=== PATIENT | female | born 1940 | race Caucasian/White ===

== ENCOUNTER → 2021-07-30 | Outpatient (CLI) | payer MEDICARE ==
--- NOTE | 2021-07-30 17:03 | RAD ---
XR CHEST 2V History: Cough Comparison: None. Technique: PA and lateral chest radiographs. Findings: The lungs are adequately inflated. There is increased AP dimension of the chest likely due to thoraci c kyphosis. No focal airspace consolidation, pleural effusion or pneumothorax. Tortuous aorta. Heart size and pulmonary vasculature are within normal limits. Degenerative changes of the spine. Soft tiss ues are unremarkable. Impression: 1. No acute cardiopulmonary process. Electronically signed by: Bakari Bowles MD (07/30/2021 5:01 PM) [id number]
== END ==
LOC: RAD 15:12
PROVIDERS: ATTEND Family Medicine
DX: M47.814 Spondylosis without myelopathy or radiculopathy, thoracic region (principal); R05.9 Cough, unspecified
CPT/HCPCS: 71046